=== PATIENT | male | born 1985 | race American Indian/Alaskan Native ===

== ENCOUNTER → 2024-08-08 | Outpatient (CLI) | payer SELFPAY ==
--- NOTE | 2024-08-08 15:17 | XR_ITS ---
Examination: Pelvic ultrasound, transabdominal, complete Technique: Transabdominal ultrasound of the pelvis performed using grayscale imaging Date and time of exam: August 08, 2024 1527 hrs. Indications: Urinary retention beginning one year ago Findings: No bladder mass or bladder calculi Bladder prevoid volume 9.1 x 5.8 x 9.3 cm Prostate normal size no prostate nodules Impression: No bladder mass or bladder abnormality Normal prostate size no prostate nodules
--- NOTE | 2024-08-08 15:17 | XR_ITS ---
Examination: Testicular sonography complete Technique: Grayscale sonographic images testes, assessment arterial inflow venous outflow Doppler spectral analysis carful analysis Exam date and time: August 08, 2024 1535 hrs. Indications: Left testicular soreness and mass 3 weeks. Findings: Right testis 5.3 cm epididymis 1.2 cm Arterial flow testicle. No testicular mass Mild hydrocele Left testis 5.4 cm epididymis 1.9 cm Arterial flow testicle. No testicular mass Mild hydrocele Impression: No testicular torsion or testicular mass
== END | disposition home or self-care (01) ==
PROVIDERS: PCP Nurse Practitioner Family; Referring Provider Nurse Practitioner Family; Visit Provider Nurse Practitioner Family
DX: N50.812 Left testicular pain (principal); R39.9 Unspecified symptoms and signs involving the genitourinary system
CPT/HCPCS: 76856; 76870